=== PATIENT | male | born 1950 | race American Indian/Alaskan Native ===

== ENCOUNTER 2017-03-01 15:16 | Inpatient (IN) | payer MEDICARE, OTHER ==
[2017-03-01 15:38] LABS: Hematocrit 47.9 % (35.5-45.6); Hemoglobin 15.8 gm/dl (11.8-15.2); Mean Corpuscular HGB Conc 33 % (32-34); Mean Corpuscular Hemoglobin 29 pg (28-32); Mean Corpuscular Volume 88 fl (84-94); Platelet Count 199 K/mm3 (140-440); Red Blood Count 5.47 M/mm3 (3.65-5.03); Red Cell Distribution Width 14.9 % (13.2-15.2); White Blood Count 5.5 K/mm3 (4.5-11.0)
[2017-03-01 16:01] LABS: Anion Gap 17 mmol/L; BUN/Creatinine Ratio 12.14; Blood Urea Nitrogen 17 mg/dL (9-20); Calcium 9.5 mg/dL (8.4-10.2); Carbon Dioxide 27 mmol/L (22-30); Chloride 101.6 mmol/L (98-107); Glucose 91 mg/dL (75-100); Potassium 4.5 mmol/L (3.6-5.0); Sodium 141 mmol/L (137-145)
[2017-03-01 16:14] LABS: Blastocytes % (Manual) 0 %
[2017-03-01 16:15] LABS: Diff Status Complete; Platelet Estimate Consistent w Auto; RBC Morphology Normal
[2017-03-01] MEDS ORDERED: DUONEB 0.5 MG-3 MG/3 ML SOLN IH ONE ×2 (20:14→20:20)
[2017-03-01] MEDS ORDERED: ZOFRAN IV ONE (22:01)
[2017-03-01] MEDS ORDERED: MORPHINE IV ONE (22:01)
[2017-03-01] MEDS ORDERED: NITRO-BID 2% TP ONE (22:01)
[2017-03-01] MEDS ORDERED: ASPIRIN PO ONE (22:02)
--- NOTE | 2017-03-01 22:09 | Emergency Department Report ---
HPI - General Chief Complaint: Dyspnea/Respdistress Time Seen by Provider: 03/01/17 21:51 - HPI HPI: Room 4 The patient is a 66-year-old male presenting with a chief complaint of chest pain shortness of breath. The patient states this morning he became diaphoretic and had increased work of breathing. Patient states he developed substernal chest pressure that felt like someone had a foot on his chest. Patient states the pressure has been constant. Patient denies nausea or vomiting. Patient does admit to an occasional cough. The patient currently gives his chest pressure score of 3-4/10 only with cough Location: Chest Duration: One day Quality: Pressure Severity: 3-4/10 Modifying factors: [see above] Context: [see above] Mode of transportation: Unknown ED Past Medical Hx - Past Medical History Hx Hypertension: Yes Hx of Cancer: Yes Additional medical history: prostate ca, hyperlipidemia - Surgical History Hx Appendectomy: Yes Additional Surgical History: prostate ca, knee surgery - Family History Family history: no significant - Social History Smoking Status: Former Smoker Substance Use Type: Alcohol - Medications Home Medications: Home Medications Medication Instructions Recorded Confirmed Last Taken Type Aspirin 81 mg PO DAILY 03/01/17 03/01/17 03/01/17 History Clopidogrel [Plavix] 75 mg PO QDAY 03/01/17 03/01/17 03/01/17 History Metoprolol [Lopressor TAB] 50 mg PO BID 03/01/17 03/01/17 03/01/17 History Montelukast [Singulair] 10 mg PO QPM PRN 03/01/17 03/01/17 Unknown History Rosuvastatin (Nf) [Crestor] 20 mg PO QHS 03/01/17 03/01/17 03/01/17 History ED Review of Systems ROS: Stated complaint: COUGH/TROUBLE BREATHING Other details as noted in HPI Comment: All other systems reviewed and negative Constitutional: diaphoresis Eyes: denies: eye pain, eye discharge, vision change ENT: denies: ear pain, throat pain Respiratory: shortness of breath Cardiovascular: chest pain Endocrine: no symptoms reported Gastrointestinal: denies: abdominal pain, nausea, diarrhea Genitourinary: denies: urgency, dysuria Musculoskeletal: denies: back pain, joint swelling, arthralgia Skin: denies: rash, lesions Neurological: denies: headache, weakness, paresthesias Psychiatric: denies: anxiety, depression Hematological/Lymphatic: denies: easy bleeding, easy bruising Physical Exam - Physical Exam Vital Signs: Vital Signs 03/01/17 03/01/17 03/01/17 15:18 20:22 20:28 Temperature 97.8 F 97.8 F Pulse Rate 70 79 Pulse Rate [ 60 Anterior Bilateral Throughout] Respiratory 20 17 Rate Respiratory 16 Rate [Anterior Bilateral Throughout] Blood Pressure 138/82 Blood Pressure 137/99 [Left] O2 Sat by Pulse 98 98 Oximetry 03/01/17 20:32 Temperature Pulse Rate Pulse Rate [ 62 Anterior Bilateral Throughout] Respiratory Rate Respiratory 16 Rate [Anterior Bilateral Throughout] Blood Pressure Blood Pressure [Left] O2 Sat by Pulse Oximetry Physical Exam: GENERAL: The patient is well-developed well-nourished male lying on stretcher not appearing to be in acute distress. [] HEENT: Normocephalic. Atraumatic. Extraocular motions are intact. Patient has moist mucous membranes. NECK: Supple. No meningitic signs are noted. There is no adenopathy noted. CHEST/LUNGS: Mild expiratory wheezing left lungs. There is no respiratory distress noted. HEART/CARDIOVASCULAR: Regular. There is no tachycardia. There is no gallop rub or murmur. ABDOMEN: Abdomen is soft, nontender. Patient has normal bowel sounds. There is no abdominal distention. SKIN: There is no rash. There is no edema. There is no diaphoresis. NEURO: The patient is awake, alert, and oriented. The patient is cooperative. The patient has normal speech MUSCULOSKELETAL: There is no evidence of acute injury. ED Course Vital Signs 03/01/17 03/01/17 03/01/17 15:18 20:22 20:28 Temperature 97.8 F 97.8 F Pulse Rate 70 79 Pulse Rate [ 60 Anterior Bilateral Throughout] Respiratory 20 17 Rate Respiratory 16 Rate [Anterior Bilateral Throughout] Blood Pressure 138/82 Blood Pressure 137/99 [Left] O2 Sat by Pulse 98 98 Oximetry 03/01/17 20:32 Temperature Pulse Rate Pulse Rate [ 62 Anterior Bilateral Throughout] Respiratory Rate Respiratory 16 Rate [Anterior Bilateral Throughout] Blood Pressure Blood Pressure [Left] O2 Sat by Pulse Oximetry ED Medical Decision Making - Lab Data Result diagrams: 03/01/17 15:26 03/01/17 15:26 Laboratory Tests 03/01/17 03/01/17 15:26 15:26 WBC 5.5 RBC 5.47 H Hgb 15.8 H Hct 47.9 H MCV 88 MCH 29 MCHC 33 RDW 14.9 Plt Count 199 Eos % (Auto) Risk Analyst Add Manual Diff Complete Total Counted 100 Seg Neuts % (Manual) 45.0 Band Neutrophils % 4.0 Lymphocytes % (Manual) 29.0 Reactive Lymphs % (Man) 2.0 Monocytes % (Manual) 7.0 Eosinophils % (Manual) 12.0 H Basophils % (Manual) 1.0 Metamyelocytes % 0 Myelocytes % 0 Promyelocytes % 0 Blast Cells % 0 Nucleated RBC % Not Reportable Seg Neutrophils # Man 2.5 Band Neutrophils # 0.2 Lymphocytes # (Manual) 1.6 Abs React Lymphs (Man) 0.1 Monocytes # (Manual) 0.4 Eosinophils # (Manual) 0.7 H Basophils # (Manual) 0.1 Metamyelocytes # 0.0 Myelocytes # 0.0 Promyelocytes # 0.0 Blast Cells # 0.0 WBC Morphology Not Reportable Hypersegmented Neuts Not Reportable Hyposegmented Neuts Not Reportable Hypogranular Neuts Not Reportable Smudge Cells Not Reportable Toxic Granulation Not Reportable Toxic Vacuolation Not Reportable Dohle Bodies Not Reportable Pelger-Huet Anomaly Not Reportable Dilan Rods Not Reportable Platelet Estimate Consistent w auto Clumped Platelets Not Reportable Plt Clumps, EDTA Not Reportable Large Platelets Not Reportable Giant Platelets Not Reportable Platelet Satelliting Not Reportable Plt Morphology Comment Not Reportable RBC Morphology Normal Dimorphic RBCs Not Reportable Polychromasia Not Reportable Hypochromasia Not Reportable Poikilocytosis Not Reportable Anisocytosis Not Reportable Microcytosis Not Reportable Macrocytosis Not Reportable Spherocytes Not Reportable Pappenheimer Bodies Not Reportable Sickle Cells Not Reportable Target Cells Not Reportable Tear Drop Cells Not Reportable Ovalocytes Not Reportable Helmet Cells Not Reportable [place] Bodies Not Reportable [place] Rings Not Reportable Stacia Cells Not Reportable Bite Cells Not Reportable Crenated Cell Not Reportable Elliptocytes Not Reportable Acanthocytes (Spur) Not Reportable Rouleaux Not Reportable Hemoglobin C Crystals Not Reportable Schistocytes Not Reportable Malaria parasites Not Reportable Go Bodies Not Reportable Hem Pathologist Commnt No Sodium 141 Potassium 4.5 Chloride 101.6 Carbon Dioxide 27 Anion Gap 17 BUN 17 Creatinine 1.4 Estimated GFR > 60 BUN/Creatinine Ratio 12.14 Glucose 91 Calcium 9.5 Troponin T < 0.010 - EKG Data -: EKG Interpreted by Me EKG shows normal: sinus rhythm Rate: normal - EKG Data When compared to previous EKG there are: no significant change Interpretation: unchanged when compared t - Radiology Data Radiology results: image reviewed (chest x-ray) interpreted by me: Chest x-ray-no focal infiltrates, no pneumothorax - Differential Diagnosis ACS, pneumonia, pericarditis, GERD Critical care attestation.: If time is entered above; I have spent that time in minutes in the direct care of this critically ill patient, excluding procedure time. ED Disposition Clinical Impression: Chest pain Disposition: OP ADMITTED IP TO THIS HOSP Is pt being admited?: Yes Does the pt Need Aspirin: Yes Condition: Fair Instructions: Chest Pain (ED) Referrals: PRIMARY CARE, [Primary Care Provider] - 3-5 Days Time of Disposition: 22:14 (hospitalist notified)
[2017-03-01] MEDS ORDERED: MILK OF MAGNESIA PO PRN (22:24)
[2017-03-01] MEDS ORDERED: DUONEB 0.5 MG-3 MG/3 ML SOLN IH PRN (22:24)
[2017-03-01] MEDS ORDERED: TYLENOL PO PRN (22:24)
[2017-03-01] MEDS ORDERED: ZOFRAN IV PRN (22:24)
[2017-03-01] MEDS ORDERED: SODIUM CHLORIDE FLUSH SYRINGE 10 ML IV PRN (22:24)
[2017-03-01] MEDS ORDERED: DULCOLAX PR PRN (22:24)
--- NOTE | 2017-03-01 22:28 | History and Physical Report ---
History of Present Illness Chief complaint: My chest hurts me History of present illness: 66 YO Male with HTN, HLD, CAD S/P PCI to RCA, CaP, presents to ED for evaluation. Pt states that he has been experiencing pain is his chest for the past day, with worsening symptoms for the past 3 hours. Pt states that pain is 4 /10, substernal, and feels like "someone has a foot on his chest", constant, not worsened with exertion, or relieved with rest, no association with meals. Pt acknowledges shortness of breath for the past 6 hours. Pt denies fever, chills, unintentional weight loss, night sweats, prolonged travel/immobility, individual/family history of DVT/PE, trauma, syncope, hemoptysis, productive cough, orthopnea, PND, recent ill contacts. Past History Past Medical History: CAD, cancer, hypertension, hyperlipidemia Past Surgical History: appendectomy, Other (Knee surgery, prostate surgery) Social history: , lives with family. denies: smoking, alcohol abuse, prescription drug abuse Family history: CAD, hypertension Medications and Allergies Allergies Allergy/AdvReac Type Severity Reaction Status Date / Time No Known Allergies Allergy Unverified 02/19/14 12:59 Home Medications Medication Instructions Recorded Confirmed Last Taken Type Aspirin 81 mg PO DAILY 03/01/17 03/01/17 03/01/17 History Clopidogrel [Plavix] 75 mg PO QDAY 03/01/17 03/01/17 03/01/17 History Metoprolol [Lopressor TAB] 50 mg PO BID 03/01/17 03/01/17 03/01/17 History Montelukast [Singulair] 10 mg PO QPM PRN 03/01/17 03/01/17 Unknown History Rosuvastatin (Nf) [Crestor] 20 mg PO QHS 03/01/17 03/01/17 03/01/17 History Active Meds: Active Medications Acetaminophen (Tylenol) 650 mg PO Q4H PRN PRN Reason: Pain MILD(1-3)/Fever >100.5/LAUREN Albuterol/Ipratropium (Duoneb 0.5 Mg-3 Mg/3 Ml Soln) 1 ampul IH Q6HRT PRN PRN Reason: Wheezing Bisacodyl (Dulcolax) 10 mg PA QDAY PRN PRN Reason: Constipation unrelieved by MOM Magnesium Hydroxide (Milk Of Magnesia) 30 ml PO Q4H PRN PRN Reason: Constipation Ondansetron HCl (Zofran) 4 mg IV Q8H PRN PRN Reason: N/V unrelieved by Reglan Sodium Chloride (Sodium Chloride Flush Syringe 10 Ml) 10 ml IV PRN PRN PRN Reason: LINE FLUSH Review of Systems All systems: negative Cardiovascular: chest pain Exam - Constitutional Vitals: Temp Pulse Resp BP Pulse Ox 97.8 F 62 16 137/99 98 03/01/17 20:28 03/01/17 20:32 03/01/17 20:32 03/01/17 20:28 03/01/17 20:28 General appearance: Present: no acute distress, well-nourished - EENT Eyes: Present: PERRL ENT: hearing intact, clear oral mucosa - Neck Neck: Present: supple, normal ROM - Respiratory Respiratory effort: normal Respiratory: bilateral: CTA - Cardiovascular Heart Sounds: Present: S1 & S2. Absent: rub, click - Extremities Extremities: pulses symmetrical, No edema Peripheral Pulses: within normal limits - Abdominal General gastrointestinal: Present: soft, non-tender, non-distended, normal bowel sounds Male genitourinary: Present: normal - Integumentary Integumentary: Present: clear, warm, dry - Musculoskeletal Musculoskeletal: gait normal, strength equal bilaterally - Psychiatric Psychiatric: appropriate mood/affect, intact judgment & insight - Neurologic Neurologic: CNII-XII intact, moves all extremities Results - Labs CBC & Chem 7: 03/01/17 15:26 03/01/17 15:26 Labs: Abnormal lab results 03/01/17 Range/Units 15:26 RBC 5.47 H (3.65-5.03) M/mm3 Hgb 15.8 H (11.8-15.2) gm/dl Hct 47.9 H (35.5-45.6) % Eosinophils % (Manual) 12.0 H (0.0-4.3) % Eosinophils # (Manual) 0.7 H (0.0-0.4) K/mm3 Assessment and Plan - Patient Problems (1) ACS (acute coronary syndrome) Current Visit: Yes Status: Acute Plan to address problem: Serial cardiac enzymes, ekg, telemetry, D dimer, Echo, stress test, cardiology consulted (2) HTN (hypertension) Current Visit: Yes Status: Acute Qualifiers: Hypertension type: H Plan to address problem: controlled, resume home medication, monitor bp q shift (3) HLD (hyperlipidemia) Current Visit: Yes Status: Acute Qualifiers: Hyperlipidemia type: H Plan to address problem: Resume statin therapy (4) CAD (coronary artery disease) Current Visit: Yes Status: Acute Qualifiers: Coronary Disease-Associated Artery/Lesion type: C [place] vs. transplanted heart: N Associated angina: A Plan to address problem: Serial cardiac enzymes, ekg, telemetry, cardiology consulted, DAPT, supportive care. (5) Prostate cancer Current Visit: Yes Status: Acute Plan to address problem: continue current care, (6) DVT prophylaxis Current Visit: Yes Status: Acute
--- NOTE | 2017-03-01 22:48 | Admit Criteria Form ---
Admission Criteria Documentation: CHEST PAIN Clinical Indications for Admission to Inpatient Care (Place 'X' for any and all applicable criteria): Admission is indicated for chest pain and ANY ONE of the following(1)(2)(3)(4)(5 ): [ ]I. Angina with acute coronary syndrome (Also use Myocardial Infarction or Angina guideline) [ ]II. Hemodynamic instability [ ]III. Angina needing acute intervention as indicated by ALL of the following( 11)(12): [ ]a) Unstable angina is present as indicated by angina that is ANY ONE of the following: [ ]i) New onset [ ]ii) Nocturnal [ ]iii) Prolonged at rest [ ]iv) Progressive [ ]b) Angina warrants acute intervention as indicated by ANY ONE of the following: [ ]i) Recurrent angina (e.g, not responding as previously to treatment) [ ]ii) Angina at rest or with low-level activities despite initial medical therapy [ ]iii) New or presumably new ST-segment depression on ECG [ ]iv) Signs or symptoms of heart failure (eg, dyspnea, pulmonary edema) [ ]v) New or worsening mitral regurgitation [ ]vi) Hemodynamic instability [ ]vii) Dangerous arrhythmia (eg, sustained ventricular tachycardia) [ ]viii) History of percutaneous coronary intervention within 6 months [ ]ix) History of coronary artery bypass graft surgery [ ]x) GRISELDA risk score of 2 or greater[A] [ ]xi) History of Diabetes(14) [ ]xii) High-risk cardiac ischemia findings on noninvasive testing (e.g, echocardiogram, treadmill testing, nuclear scan) [ ]xiii) Chronic renal insufficiency (ie, estimated GFR less than 60 mL/min/1.732m) [ ]xiv) Left ventricular ejection fraction less than 40% [ ]IV. Evidence of [place] (eg, cardiac biomarkers positive, ST-segment elevation on ECG) also use Myocardial Infarction Criteria Form. [ ]V. Pulmonary edema [ X]. Respiratory distress [ ]VII. Chest pain indicative of serious diagnosis other than coronary artery disease (eg, aortic dissection) [ ]VIII. Contraindications and/or Inappropriate clinical situations for Observational Care in patients with Chest Pain, when ANY ONE of the following is required: [ ]a) Patient with risk factor for pulmonary embolism, acute coronary syndrome and myocardial infarction (18) [ ]b) Patient with Pulmonary embolism require an average LOS of 4.3 days, therefore emergency department observation management is inappropriate 18,23 [ ]c) Painful condition/s in the elderly, have the highest rate of recidivism after emergency department observation management (10.8%) 20,21,22 [ ]d) Elevated cardiac biomarker requires intensive and exhaustive care (19) [ ]IX. General contraindications and/or Inappropriate clinical situations for Observational Care in patients with Chest Pain, when ANY ONE of the following is required: [ ]a) Prediction of prolongation of LOS based on ANY ONE of the following may be considered as a contraindication for observational care 2, 3, 4, 5, 6, 7, 8, 9, 10, 11 [ ]i) Age > 65 yrs. [ ]ii) Patient arriving by ambulance [ ]iii) Patient with high acuity [ ]iv) Patient requiring vital sign monitoring [ ]v) Patient on IV medication [ ]b) Systolic blood pressures 180mmHg 3,12 [ ]c) Patient with altered mental status including delirium and other alteration of consciousness, (3) [ ]d) Patient whose discharge disposition will be to a retirement home or rehabilitation home should not be managed in Emergency Department Observation Unit. CMS rule requires 3 days hospital stay before such placement. 3,13 [ ]e) Patient with failure to thrive due to broad array of etiologies 3,16,17 [ ]f) Inability to ambulate 3,14 Extended stay beyond goal length of stay may be needed for (1)(28): [ ]a) Specific condition diagnosed after evaluation (eg, pulmonary embolism, aortic dissection) [ ]b) Unstable angina [ ]c) Continued suspicion of acute coronary syndrome with inability to complete needed cardiac evaluation (eg, patient clinically unable to undergo stress testing) [ ]d) Myocardial infarction (Contents from ANGINA and CHEST PAIN clinical indications for admission to inpatient care have been integrated in this form) The original [employer] content created by [employer] has been revised. The portions of the content which have been revised are identified through the use of italic text or in bold, and [email or web address] has neither reviewed nor approved the modified material. All other unmodified content is copyright [employer]. Please see references footnoted in the original [email or web address] edition 2016
[2017-03-01] MEDS ORDERED: PROVENTIL IH PRN (23:30)
[2017-03-02] MEDS ORDERED: ROBITUSSIN DM PO PRN (00:49)
[2017-03-02 02:54] LABS: Creatine Kinase MB 2.2 ng/mL (0.0-4.0)
[2017-03-02 02:55] LABS: Creatine Kinase 229 units/L (55-170)
[2017-03-02 04:24] LABS: Creatine Kinase MB 2.1 ng/mL (0.0-4.0)
[2017-03-02 04:27] LABS: Creatine Kinase 206 units/L (55-170)
[2017-03-02] MEDS ORDERED: DUONEB 0.5 MG-3 MG/3 ML SOLN IH SCH (08:00)
--- NOTE | 2017-03-02 09:42 | XRay Report ---
CHEST TWO VIEWS: 03/01/17 15:16:00 CLINICAL: Shortness of breath. COMPARISON: 02/20/14 FINDINGS: Normal heart and pulmonary vasculature. The lungs are normally expanded and clear. Aortic ectasia and tortuosity is unchanged compared to the prior exam.The bones and soft tissues are normal. IMPRESSION: Atherosclerotic/hypertensive changes in the aorta.No acute cardiopulmonary process.
[2017-03-02] MEDS ORDERED: PLAVIX PO SCH (10:00)
[2017-03-02] MEDS ORDERED: BABY ASPIRIN PO SCH (10:00)
[2017-03-02] MEDS ORDERED: LOPRESSOR PO SCH (10:00)
--- NOTE | 2017-03-02 11:06 | Consultation ---
History of Present Illness Consult date: 03/02/17 Consult reason: chest pain History of present illness: Seen and evaluated in stress lab Impression Atypical chest pain Known CAD s/p RCA stent 2013 Hyperlipidemia HTN Plan He was unable to lay under nuclear camera Exercise TMST, he had good exercise tolerance over 8 min he had no chest pain or ECG changes, he only reached about 77% on max HR due to chronotropic incompetence from B-blockers. Based on test, recommend continuing medical therapy, no further inpt Cardiology eval recommended. will sign off. Past History Past Medical History: CAD, cancer, hypertension, hyperlipidemia Past Surgical History: appendectomy, Other (Knee surgery, prostate surgery) Social history: , lives with family. denies: smoking, alcohol abuse, prescription drug abuse Family history: CAD, hypertension Medications and Allergies Allergies Allergy/AdvReac Type Severity Reaction Status Date / Time No Known Allergies Allergy Unverified 02/19/14 12:59 Home Medications Medication Instructions Recorded Confirmed Last Taken Type Aspirin 81 mg PO DAILY 03/01/17 03/01/17 03/01/17 History Clopidogrel [Plavix] 75 mg PO QDAY 03/01/17 03/01/17 03/01/17 History Metoprolol [Lopressor TAB] 50 mg PO BID 03/01/17 03/01/17 03/01/17 History Montelukast [Singulair] 10 mg PO QPM PRN 03/01/17 03/01/17 Unknown History Rosuvastatin (Nf) [Crestor] 20 mg PO QHS 03/01/17 03/01/17 03/01/17 History Active Meds: Active Medications Acetaminophen (Tylenol) 650 mg PO Q4H PRN PRN Reason: Pain MILD(1-3)/Fever >100.5/LAUREN Albuterol (Proventil) 2.5 mg IH Q6HRT PRN PRN Reason: Shortness Of Breath Last Admin: 03/02/17 05:40 Dose: 2.5 mg Aspirin (Baby Aspirin) 81 mg PO DAILY [facility] Atorvastatin Calcium (Lipitor) 40 mg PO QHS JOAN Bisacodyl (Dulcolax) 10 mg UT QDAY PRN PRN Reason: Constipation unrelieved by MOM Clopidogrel Bisulfate (Plavix) 75 mg PO QDAY JOAN Guaifenesin (Robitussin Dm) 10 ml PO Q4H PRN PRN Reason: Cough Last Admin: 03/02/17 01:34 Dose: 10 ml Magnesium Hydroxide (Milk Of Magnesia) 30 ml PO Q4H PRN PRN Reason: Constipation Metoprolol Tartrate (Lopressor) 50 mg PO BID JOAN Montelukast Sodium (Singulair) 10 mg PO QPM JOAN Ondansetron HCl (Zofran) 4 mg IV Q8H PRN PRN Reason: N/V unrelieved by Reglan Sodium Chloride (Sodium Chloride Flush Syringe 10 Ml) 10 ml IV PRN PRN PRN Reason: LINE FLUSH Review of Systems All systems: negative (in impression) Physical Examination Vital Signs Temp Pulse Resp BP Pulse Ox 97.8 F 70 20 138/82 98 03/01/17 15:18 03/01/17 15:18 03/01/17 15:18 03/01/17 15:18 03/01/17 15:18 General appearance: no acute distress HEENT: Positive: PERRL Neck: Positive: neck supple Cardiac: Positive: Reg Rate and Rhythm, S1/S2 Lungs: Positive: Normal Exam Neuro: Positive: Grossly Intact Abdomen: Positive: Unremarkable, Soft Results 03/01/17 15:26 03/01/17 15:26 Cardiac Enzymes 03/02/17 03/02/17 Range/Units 02:01 03:28 CK-MB (CK-2) 2.2 2.1 (0.0-4.0) ng/mL
[2017-03-02 13:21] VITALS: BP 118/75
--- NOTE | 2017-03-02 13:36 | Discharge Summary ---
Providers - Providers Date of Admission: 03/01/17 22:24 Date of discharge: 03/02/17 Attending physician: RODRÍGUEZ TRAVIS Primary care physician: SOAP DRIER OPERATOR Hospitalization Condition: Fair Hospital course: 66 YO Male with HTN, HLD, CAD S/P PCI to RCA, CaP, presents to ED for evaluation. Pt states that he has been experiencing pain is his chest for the past day, with worsening symptoms for the past 3 hours. Discahrge Diagnosis: Atypical chest pain, likely GERD h/o CAD s/p RCA stent 2013 Hyperlipidemia HTN, controlled Disposition: DISCHARGED TO HOME OR SELFCARE Time spent for discharge: 32 minutes Core Measure Documentation - Palliative Care Palliative Care/ Comfort Measures: Not Applicable - Core Measures Any of the following diagnoses?: none Exam - Constitutional Vitals: Temp Pulse Resp BP Pulse Ox 97.6 F 62 20 118/75 97 03/02/17 11:02 03/02/17 11:02 03/02/17 11:02 03/02/17 11:02 03/02/17 12:23 General appearance: Present: no acute distress, well-nourished - EENT Eyes: Present: PERRL ENT: hearing intact, clear oral mucosa - Neck Neck: Present: supple, normal ROM - Respiratory Respiratory effort: normal Respiratory: bilateral: CTA - Cardiovascular Heart Sounds: Present: S1 & S2. Absent: rub, click - Extremities Extremities: pulses symmetrical, No edema Peripheral Pulses: within normal limits - Abdominal General gastrointestinal: Present: soft, non-tender, non-distended, normal bowel sounds - Integumentary Integumentary: Present: clear, warm, dry - Musculoskeletal Musculoskeletal: gait normal, strength equal bilaterally - Psychiatric Psychiatric: appropriate mood/affect, intact judgment & insight - Neurologic Neurologic: CNII-XII intact, moves all extremities Plan Activity: advance as tolerated Weight Bearing Status: Non-Weight Bearing Diet: low cholesterol, low salt Follow up with: PRIMARY CARE, [Primary Care Provider] - 3-5 Days Prescriptions: Pantoprazole [Protonix] 40 mg PO QDAY #30 tablet
[2017-03-02] MEDS ORDERED: SINGULAIR PO SCH (18:00)
== END 2017-03-02 14:30 | disposition home or self-care (01) | DRG 392 ==
LOC: ED 15:16 → 4A 22:24
PROVIDERS: ADMIT Internal Medicine; ATTEND Internal Medicine
DX: K21.9 Gastro-esophageal reflux disease without esophagitis (principal); I24.9 Acute ischemic heart disease, unspecified; I25.10 Atherosclerotic heart disease of native coronary artery without angina pectoris; E78.5 Hyperlipidemia, unspecified; I10 Essential (primary) hypertension; Z95.5 Presence of coronary angioplasty implant and graft; Z85.46 Personal history of malignant neoplasm of prostate; Z82.49 Family history of ischemic heart disease and other diseases of the circulatory system
CPT/HCPCS: 36415; 71020; 80048; 82550; 82553; 84484; 85007; 85025; 85379; 93005; 93010; 93017; 93306; 94640; 96374; 96375; J2270; J2405

== ENCOUNTER 2022-05-21 19:01 | Emergency (ER) | payer MEDICARE ==
[2022-05-21 19:22] VITALS: BP 131/76
[2022-05-22] MEDS ORDERED: ALBUTEROL 2.5 MG/3 ML NEBU IH ONE (02:58)
[2022-05-22] MEDS ORDERED: IPRATROPIUM 0.02% NEBU 2.5 ML IH ONE (02:58)
[2022-05-22] MEDS ORDERED: methylPREDNISolone Sod Succinate 125 MG/2 ML INJ IM ONE (02:58)
--- NOTE | 2022-05-22 04:11 | XRay Report ---
XR chest 1V ap INDICATION / CLINICAL INFORMATION: dyspnea, cough, asthma. COMPARISON: 03/01/2017 FINDINGS: SUPPORT DEVICES: None. HEART /PULMONARY VASCULATURE: No significant abnormality. LUNGS / PLEURA: No significant pulmonary or pleural abnormality. No pneumothorax. ADDITIONAL FINDINGS: No significant additional findings. IMPRESSION: 1. No acute findings. Signer Name: Geovani Ralph MD Signed: 05/22/2022 4:06 AM Workstation Name: [id number]
--- NOTE | 2022-05-22 07:06 | Emergency Department Report ---
- General Chief Complaint: Adult Asthma Stated Complaint: ASTHMA ATTACK Source: patient, family Mode of arrival: Ambulatory Limitations: No Limitations - History of Present Illness Initial Comments: Patient is a 71-year-old -[place] male with a history of hypertension and asthma who presents to the ED with complaint of acute exacerbation of his chronic asthma characterized by shortness of breath, wheezing, dry cough, nasal and sinus congestion for the last 1 week, worse in the last 3 days. Patient states that he has been using his albuterol inhaler at home with no relief. Patient states that his symptoms are consistent with his chronic asthma exacerbation. Patient denies dizziness, syncope, chest pain, abdominal pain, fever, chills, cough, nausea and vomiting, diarrhea, dizziness, syncope, fall, traumatic injury, hemoptysis, sore throat, headache, palpitations or diaphoresis. MD Complaint: cough, nasal congestion, other (Shortness of breath and wheezing) -: week(s) (1) Severity: moderate Quality: other (Chest tightness) Consistency: constant Improves With: nothing Worsens With: nothing Context: other (Asthma) Associated Symptoms: denies other symptoms, rhinorrhea, nasal congestion, cough, shortness of breath. denies: fever, chills, diaphoresis, sore throat, chest pain, abdominal pain, nausea, vomiting, diarrhea, dysuria, rash, right sweats, weight loss, epistaxis, ear pain Treatments Prior to Arrival: none - Related Data Home Medications Medication Instructions Recorded Confirmed Last Taken Aspirin 81 mg PO DAILY 03/01/17 03/01/17 03/01/17 Clopidogrel [Plavix] 75 mg PO QDAY 03/01/17 03/01/17 03/01/17 Metoprolol [Lopressor TAB] 50 mg PO BID 03/01/17 03/01/17 03/01/17 Montelukast [Singulair] 10 mg PO QPM PRN 03/01/17 03/01/17 Unknown Rosuvastatin (Nf) [Crestor] 20 mg PO QHS 03/01/17 03/01/17 03/01/17 Previous Rx's Medication Instructions Recorded Last Taken Type Pantoprazole [Protonix] 40 mg PO QDAY #30 tablet 03/02/17 Unknown Rx Allergies Allergy/AdvReac Type Severity Reaction Status Date / Time No Known Allergies Allergy Unverified 02/19/14 12:59 ED Review of Systems ROS: Stated complaint: ASTHMA ATTACK Other details as noted in HPI Constitutional: denies: chills, fever Eyes: denies: eye pain, eye discharge, vision change ENT: denies: ear pain, throat pain Respiratory: cough, shortness of breath, wheezing Cardiovascular: other (Chest tightness). denies: chest pain, palpitations Endocrine: no symptoms reported Gastrointestinal: denies: abdominal pain, nausea, vomiting, diarrhea, constipation, hematemesis Genitourinary: denies: urgency, dysuria, frequency, hematuria, discharge, testicular pain, testicular mass Musculoskeletal: denies: back pain, joint swelling, arthralgia Skin: denies: rash, lesions Neurological: denies: headache, weakness, paresthesias Psychiatric: denies: anxiety, depression Hematological/Lymphatic: denies: easy bleeding, easy bruising ED Past Medical Hx - Past Medical History Hx Hypertension: Yes Hx Congestive Heart Failure: No Hx Diabetes: No Hx Asthma: Yes Hx COPD: No Additional medical history: prostate ca, hyperlipidemia - Surgical History Hx Coronary Stent: Yes Hx Appendectomy: Yes Additional Surgical History: prostate ca, knee surgery - Social History Smoking Status: Former Smoker - Medications Home Medications: Home Medications Medication Instructions Recorded Confirmed Last Taken Type Aspirin 81 mg PO DAILY 03/01/17 03/01/17 03/01/17 History Clopidogrel [Plavix] 75 mg PO QDAY 03/01/17 03/01/17 03/01/17 History Metoprolol [Lopressor TAB] 50 mg PO BID 03/01/17 03/01/17 03/01/17 History Montelukast [Singulair] 10 mg PO QPM PRN 03/01/17 03/01/17 Unknown History Rosuvastatin (Nf) [Crestor] 20 mg PO QHS 03/01/17 03/01/17 03/01/17 History Pantoprazole [Protonix] 40 mg PO QDAY #30 tablet 03/02/17 Unknown Rx ED Physical Exam - General Limitations: No Limitations General appearance: alert, in no apparent distress - Head Head exam: Present: atraumatic, normocephalic, normal inspection - Eye Eye exam: Present: normal appearance, PERRL, EOMI Pupils: Present: normal accommodation - ENT ENT exam: Present: normal exam, normal orophraynx, mucous membranes moist, TM's normal bilaterally, normal external ear exam - Neck Neck exam: Present: normal inspection, full ROM. Absent: tenderness - Respiratory Respiratory exam: Present: wheezes (Mildly diffuse coarse wheezes throughout). Absent: normal lung sounds bilaterally, respiratory distress, rales, rhonchi, chest wall tenderness, accessory muscle use, decreased breath sounds, prolonged expiratory - Cardiovascular Cardiovascular Exam: Present: regular rate, normal rhythm, normal heart sounds. Absent: systolic murmur, diastolic murmur, rubs, gallop - GI/Abdominal GI/Abdominal exam: Present: soft, normal bowel sounds. Absent: tenderness, guarding, rebound, hyperactive bowel sounds, hypoactive bowel sounds, mass - Extremities Exam Extremities exam: Present: normal inspection, full ROM, normal capillary refill - Back Exam Back exam: Present: normal inspection, full ROM. Absent: tenderness, CVA tenderness (R), CVA tenderness (L), muscle spasm, paraspinal tenderness, vertebral tenderness - Neurological Exam Neurological exam: Present: alert, oriented X3, CN II-XII intact, normal gait, reflexes normal - Psychiatric Psychiatric exam: Present: normal affect, normal mood - Skin Skin exam: Present: warm, dry, intact, normal color. Absent: rash ED Course Vital Signs 05/21/22 19:01 Temperature 98.1 F Pulse Rate 68 Respiratory 18 Rate Blood Pressure 131/76 [Right] O2 Sat by Pulse 98 Oximetry ED Medical Decision Making - Radiology Data Radiology results: report reviewed, image reviewed [address] [address] XRay Report Signed Patient: DES ANTONIO MR#: [id number] : 1950 Acct:[id number] Age/Sex: 71 / M ADM Date: 05/21/22 Loc: ED Attending Dr: Ordering Physician: BERNARDO RAMON Date of Service: 05/22/22 Procedure(s): XR chest 1V ap Accession Number(s): [id number] cc: BERNARDO RAMON Fluoro Time In Minutes: XR chest 1V ap INDICATION / CLINICAL INFORMATION: dyspnea, cough, asthma. COMPARISON: 03/01/2017 FINDINGS: SUPPORT DEVICES: None. HEART /PULMONARY VASCULATURE: No significant abnormality. LUNGS / PLEURA: No significant pulmonary or pleural abnormality. No pneumothorax. ADDITIONAL FINDINGS: No significant additional findings. IMPRESSION: 1. No acute findings. Signer Name: Des Ralph MD Signed: 05/22/2022 4:06 AM Workstation Name: [id number] Transcribed By: EVELINE Dictated By: DES RALPH MD Electronically Authenticated By: DES RALPH MD Signed Date/Time: 05/22/22405 DD/ 6 TD/TT: - Medical Decision Making This is a 71-year-old -Hung[place] male with a history of hypertension and asthma who presents to the ED with complaint of acute exacerbation of his chronic asthma characterized by shortness of breath, wheezing, dry cough, nasal and sinus congestion for the last 1 week, worse in the last 3 days. Patient states that he has been using his albuterol inhaler at home with no relief. Patient states that his symptoms are consistent with his chronic asthma exacerbation. In the ED, patient is alert and oriented x3 and is not in any distress. Patient is hemodynamically stable. Patient was treated in the ED with DuoNeb for 1 hour, Solu-Medrol 125 mg intramuscular injection. Chest x-ray showed no acute cardiopulmonary abnormalities or pneumonitis. On reevaluation, patient is hemodynamically stable with oxygen saturation ranging from 98% to 100% on room air. Patient however walked out and left the ER AGAINST MEDICAL ADVICE prior to being discharged. - Differential Diagnosis Asthma; bronchitis; pneumonia; URI; COVID-19 Critical care attestation.: If time is entered above; I have spent that time in minutes in the direct care of this critically ill patient, excluding procedure time. ED Disposition Clinical Impression: Acute bronchitis with asthma with acute exacerbation, Shortness of breath, Acute upper respiratory infection Disposition: 07 LEFT AGAINST MEDICAL ADVICE Is pt being admited?: No Does the pt Need Aspirin: No Condition: Undetermined Instructions: Shortness of Breath, Adult, [id number], Upper Respiratory Infection, Adult, [id number], Cough, Adult, [id number], Acute Bronchitis, Adult, Dnad-na-[id number], Asthma, Adult, [id number] Additional Instructions: Chest x-ray showed no acute cardiopulmonary abnormalities or pneumonitis. Therefore take medication with food, drink plenty of fluids, follow-up with your primary care physician in 7 to 10 days for reevaluation. Return to the ED immediately if symptoms get worse. Referrals: [facility] [Provider Group] - 3-5 Days Time of Disposition: 07:14 Print Language: PUERTO RICAN
--- NOTE | 2022-05-22 11:14 | Electrocardiograph Report ---
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
== END 2022-05-22 07:23 | disposition left against medical advice (07) ==
LOC: ED 19:01
DX: J45.901 Unspecified asthma with (acute) exacerbation (principal); R06.02 Shortness of breath; J06.9 Acute upper respiratory infection, unspecified; I10 Essential (primary) hypertension; Z87.891 Personal history of nicotine dependence
CPT/HCPCS: 71045; 93005; 94640; 96372; 99283; J2930